=== PATIENT | female | born 1935 ===

== ENCOUNTER 2018-11-18 15:45 | Inpatient (IN) | payer MEDICARE ==
[~2018-11-18] VITALS: Ht 177.8 cm; Wt 65.3 kg
[2018-12-02 07:50] VITALS: BP 155/80
== END 2018-12-02 11:15 | disposition home or self-care (01) | DRG 56 ==
LOC: 3E 17:22
PROVIDERS: ADMIT Psychiatry & Neurology Psychosomatic Medicine; ATTEND Psychiatry & Neurology Psychosomatic Medicine
DX: G30.8 Other Alzheimer's disease (principal); G93.41 Metabolic encephalopathy; F02.81 Dementia in other diseases classified elsewhere, unspecified severity, with behavioral disturbance; F05 Delirium due to known physiological condition; N39.0 Urinary tract infection, site not specified; B96.1 Klebsiella pneumoniae [K. pneumoniae] as the cause of diseases classified elsewhere; G40.909 Epilepsy, unspecified, not intractable, without status epilepticus; G47.00 Insomnia, unspecified; I10 Essential (primary) hypertension; I25.10 Atherosclerotic heart disease of native coronary artery without angina pectoris; K59.00 Constipation, unspecified; Z79.899 Other long term (current) drug therapy; Z86.73 Personal history of transient ischemic attack (TIA), and cerebral infarction without residual deficits
CPT/HCPCS: 36415; 71045; 80053; 80061; 81001; 82140; 82565; 82607; 84439; 84443; 85025; 86592; 87077; 87086; 87186; 93005; J0696; J1650; Q0162; 92522-GN; J2060